=== PATIENT | female | born 1980 | race Caucasian/White ===

== ENCOUNTER 2017-12-30 14:22 | Emergency (ER) | payer OTHER ==
[2017-12-30] MEDS ORDERED: BUPIVACAINE 0.5% PF 10 ML VIAL SUBQ STA (16:05)
[2017-12-30] MEDS ORDERED: AMOX/CLAV 875 MG/125 MG TABLET PO STA (16:14)
--- NOTE | 2017-12-30 16:18 | ED Physician Documentation ---
History of Present Illness - Stated complaint Stated Complaint: DOG BITE LT RING FINGER - Chief complaint Chief Complaint: General - Additonal information Additional information: hx from pt bit by a pet dog at work at the [employer] lac to L 4th finger distally pet is healthy and immunized pt tdap UTD Review of Systems Skin: reports: Laceration (s) PD PAST MEDICAL HISTORY - Past Medical History Past Medical History: Yes Psych: Anxiety - Past Surgical History Past Surgical History: No - Present Medications Home Medications: Ambulatory Orders Medication Instructions Recorded Confirmed Amox/Clav 875/125 [Augmentin] 1 each PO Q12H #10 tablet 12/30/17 Sertraline [Zoloft] 75 mg PO DAILY 12/30/17 12/30/17 - Allergies Allergies/Adverse Reactions: Allergies Allergy/AdvReac Type Severity Reaction Status Date / Time No Known Drug Allergies Allergy Verified 12/30/17 14:29 - Social History Does the pt smoke?: No Smoking Status: Never smoker Does the pt drink ETOH?: No Does the pt have substance abuse?: No - Immunizations Immunizations are current?: Yes - POLST Patient has POLST: No PD ED PE NORMAL - Vitals Vital signs reviewed: Yes - Extremities Extremities: Other (lac from lateral aspect of nail 1[address], MSV intact, tendon intact) Results - Vitals Vitals: Vital Signs - 24 hr 12/30/17 14:27 Temperature 36.2 C L Heart Rate 74 Respiratory 18 Rate Blood Pressure 110/77 O2 Saturation 98 Oxygen O2 Source Room air Procedures - Laceration (location) finger Length in cm: 1.5 Wound type: Curved Neurovascular status: Sensory intact, Motor intact Tendon involvement: Tendon intact Anesthesia: Marcaine 0.5% Wound Preparation: Irrigated copiously NS (by tech and then by me making sure to lift the flap and copisouly irrigate underneath), Wound explored, To the base. No: FB identified Skin layer closure: Nylon, Size #-0 - enter number, Sutures - enter # (1) Other: Patient tolerated well, No complications, Neurovascular intact, Dressing applied, Tetanus UTD Complexity: Simple, Other (explained to pt that bites are not closed - just a single suture to tack flap in place but open on both ends) Departure - Departure Disposition: 01 Home, Self Care Clinical Impression: Dog bite Qualifiers: Encounter type: initial encounter Qualified Code(s): W54.0XXA - Bitten by dog, initial encounter Condition: Good Instructions: ED Bite Animal General Prescriptions: Amox/Clav 875/125 [Augmentin] 1 each PO Q12H #10 tablet Comments: Keep the wound clean Apply antibiotic ointment twice a day Take the antibiotics for 5 days Watch for any signs of developing infection such as redness swelling drainage streaking and return if those symptoms develop Suture out in 7 days
[2017-12-30] MEDS ORDERED: BACITRACIN OINT TOP ONE (16:41)
[2017-12-30 17:09] VITALS: BP 108/82
== END 2017-12-30 17:15 | disposition home or self-care (01) ==
LOC: ED 14:22
DX: S61.215A Laceration without foreign body of left ring finger without damage to nail, initial encounter (principal); W54.0XXA Bitten by dog, initial encounter; Y93.K3 Activity, grooming and shearing an animal; Y99.0 Civilian activity done for income or pay
CPT/HCPCS: 1040M; 12001; 99282; 99283; A9270

== ENCOUNTER 2018-05-29 13:42 | Emergency (ER) | payer OTHER ==
[2018-05-29 14:05] VITALS: BP 107/67
[2018-05-29] MEDS ORDERED: NAPROXEN 250 MG TABLET PO STA (14:21)
[2018-05-29] MEDS ORDERED: diazePAM 5 MG TABLET PO STA (14:21)
--- NOTE | 2018-05-29 14:21 | ED Physician Documentation ---
PD HPI BACK PAIN - Stated complaint Stated Complaint: LOWER BACK PX - Chief complaint Chief Complaint: Back Pain - History obtained from History obtained from: Patient - Additional information Additional information: 38-year-old female with a history of recurrent lower back pain presents the emergency department with back spasm that started roughly 2-1/2 hours ago. 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 The patient felt a spasm which is now decreased and the patient has soreness in her lower back. The patient denies saddle anesthesia, urinary retention, hematuria, fever, lower leg radiation, lower leg numbness, overflow incontinence or direct trauma. Symptoms are described as moderate no other associated symptoms. Review of Systems Constitutional: denies: Fever, Chills Ears: denies: Ear pain Respiratory: denies: Dyspnea GI: denies: Abdominal Pain : denies: Dysuria, Hematuria Musculoskeletal: reports: Back pain Neurologic: denies: Focal weakness PD PAST MEDICAL HISTORY - Past Medical History Psych: Anxiety - Past Surgical History Past Surgical History: No - Present Medications Home Medications: Ambulatory Orders Medication Instructions Recorded Confirmed Amox/Clav 875/125 [Augmentin] 1 each PO Q12H #10 tablet 12/30/17 Sertraline [Zoloft] 75 mg PO DAILY 12/30/17 12/30/17 diazePAM [Valium] 5 mg PO TID PRN #15 tablet 05/29/18 - Allergies Allergies/Adverse Reactions: Allergies Allergy/AdvReac Type Severity Reaction Status Date / Time hydrocodone Allergy Emesis Verified 05/29/18 14:06 oxycodone Allergy Emesis Verified 05/29/18 14:06 - Social History Does the pt smoke?: No Smoking Status: Never smoker Does the pt drink ETOH?: No Does the pt have substance abuse?: No - Immunizations Immunizations are current?: Yes - POLST Patient has POLST: No PD ED PE NORMAL - General General: Alert and oriented X 3, No acute distress - HEENT HEENT: Atraumatic, PERRL, EOMI, Ears normal - Cardiac Cardiac: RRR - Respiratory Respiratory: No respiratory distress - Back Back: Other (The patient has paraspinal tenderness bilaterally of the lumbar spine) - Derm Derm: Other - Neuro Neuro: Alert and oriented X 3, 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 Presently the patient appears appropriate for discharge and ongoing outpatient management. I recommended returning to the emergency department for any worsening or concerns Departure - Departure Disposition: Home, Self Care Clinical Impression: Lumbar spine strain Qualifiers: Encounter type: initial encounter Qualified Code(s): S39.012A - Strain of muscle, fascia and tendon of lower back, initial encounter Condition: Good Instructions: ED Spasm Back No Trauma Follow-Up: Arvind Yost ARNP [Primary Care Provider] - Within 1 week (Please ask your primary care to arrange for an outpatient referral to physical therapy and if your symptoms are not improving you may need a MRI) Prescriptions: diazePAM [Valium] 5 mg PO TID PRN #15 tablet PRN Reason: Spasms Comments: Please return to the emergency department for any worsening or any concerns
== END 2018-05-29 14:30 | disposition home or self-care (01) ==
LOC: ED 13:42
DX: S39.012A Strain of muscle, fascia and tendon of lower back, initial encounter (principal); X50.9XXA Other and unspecified overexertion or strenuous movements or postures, initial encounter; Y93.89 Activity, other specified
CPT/HCPCS: 99283; A9270